=== PATIENT | female | born 1950 | race African-American/Black ===

== ENCOUNTER 2021-10-09 22:02 | Emergency (ER) | payer MEDICARE, MEDICAID ==
[~2021-10-09] VITALS: Ht 165.1 cm; Wt 64.0 kg
[2021-10-09] MEDS ORDERED: CARB-274 EACH EAR (23:04)
[2021-10-10 00:24] VITALS: BP 136/81
== END 2021-10-10 00:26 | disposition home or self-care (01) ==
LOC: ER 22:02
DX: H61.21 Impacted cerumen, right ear (principal)
CPT/HCPCS: 99283

== ENCOUNTER 2021-10-15 14:27 | Emergency (ER) | payer MEDICARE, MEDICAID ==
[~2021-10-15] VITALS: Ht 167.6 cm; Wt 62.0 kg
[~2021-10-15 14:27] MED LIST: CARB-274 EACH EAR
[2021-10-15] MEDS ORDERED: HYDROMORPHONE HCL/PF 2MG/ML CPJ IV ONE (16:15)
[2021-10-15 16:46] LABS: HEMOGLOBIN. 11.1 g/dL (12.0-16.0); MEAN CORPUSCULAR HEMOGLOBIN 28.7 pg (28.0-32.0); MEAN PLATELET VOLUME 7.8 fl (7.4-10.4); PLATELET 324 x1000/uL (130-400); RED BLOOD CELL COUNT 3.86 mill/uL (4.2-5.4); RED CELL DISTRIBUTION WIDTH 15.1 % (11.6-14.6)
[2021-10-15 16:52] LABS: CHLORIDE 105 mEq/L (98-107)
[2021-10-15 17:54] LABS: PLATELET ESTIMATE NORMAL
[2021-10-15] MEDS ORDERED: CLONIDINE 0.1MG TABLET PO PRN (19:30)
[2021-10-15] MEDS ORDERED: ONDANSETRON HCL 4MG/2ML INJ IV PRN (19:30)
[2021-10-15] MEDS ORDERED: ACETAMINOPHEN 325MG TABLET PO PRN ×2 (19:30)
[2021-10-15] MEDS ORDERED: MAGNESIUM/ALUMINUM HYDROXIDE/SIMETHICONE 30ML UDC PO PRN (19:30)
[2021-10-15] MEDS ORDERED: HYDROCODONE/ACETAMINOPHEN 5/325MG TABLET PO PRN (19:30)
[2021-10-15] MEDS ORDERED: NALOXONE HCL 0.4MG/ML VIAL IV PRN (19:45)
[2021-10-15] MEDS: MORPHINE SULFATE 4 MG/ML CPJ (NOT FOR IM USE) IV PRN ×2 (19:52→22:59)
[2021-10-15 22:59] VITALS: BP 140/80
== END 2021-10-15 23:14 | disposition short-term general hospital (02) ==
LOC: ER 14:27 → EDBEDREQ 18:17 → EDBEDREQTM 18:17 → SUPCPDRO 19:09 → ENRESERV 20:03 → CANRESERV 20:03 → CANBEDREQ 20:09 → ER 23:14
DX: S72.91XA Unspecified fracture of right femur, initial encounter for closed fracture (principal); I10 Essential (primary) hypertension; Z88.1 Allergy status to other antibiotic agents; Z20.822 Contact with and (suspected) exposure to COVID-19; W18.30XA Fall on same level, unspecified, initial encounter; Y93.89 Activity, other specified; Y92.89 Other specified places as the place of occurrence of the external cause; Y99.8 Other external cause status
CPT/HCPCS: 36415; 73502; 73552; 80053; 85025; 87426; 96374; 96375; 99285; J1170; J2270